=== PATIENT | female | born 1950 | race Caucasian/White ===

== ENCOUNTER 2016-11-26 22:33 | Emergency (ER) | payer MEDICARE, BC | END 2016-11-26 23:47 | disposition home or self-care (01) | LOC: BURERS 22:33 | DX: F41.9 Anxiety disorder, unspecified (principal); F32.9 Major depressive disorder, single episode, unspecified; Z87.891 Personal history of nicotine dependence | CPT/HCPCS: 93005 ==

== ENCOUNTER 2017-08-28 08:49 | Emergency (ER) | payer MEDICARE, BC ==
[2017-08-28] MEDS ORDERED: Diazepam 10 MG/2 ML SYRINGE ONE (09:16)
[2017-08-28 09:37] LABS: pH (venous) 7.38 (7.35-7.45)
[2017-08-28 09:38] LABS: Base Excess -1.2 mEq/L (-2 - +2); Hemoglobin (Hb) 7.7 g/dL (11.7-16.1)
[2017-08-28] MEDS ORDERED: Meclizine HCl 25 MG TAB ONE (10:24)
[2017-08-28 11:10] LABS: ALT (SGPT) 18 U/L (8-55); AST (SGOT) 12 U/L (5-34); Albumin 4.4 g/dL (3.4-4.8); Alkaline Phosphatase 90 U/L (40-150); Anion Gap 13 mmol/L (10-20); BUN (Urea Nitrogen) 12 mg/dL (9.8-20.1); Bilirubin, Total 0.3 mg/dL (0.2-1.2); CK (CPK) 57 U/L (29-168); Calc. Creatinine Clearance 0 mL/min (70-130); Calcium 9.5 mg/dL (7.8-10.44); Carbon Dioxide 24 mmol/L (23-31); Chloride 106 mmol/L (98-107); Estimated GFR-MDRD 76; Globulin 2.6 g/dL (2.4-3.5); Glucose 149 mg/dL (80-115); Lipase 21 U/L (8-78); Potassium 3.4 mmol/L (3.5-5.1); Sodium 140 mmol/L (136-145)
[2017-08-28] MEDS ORDERED: Ibuprofen 200 MG TAB ONE (11:11)
[2017-08-28 12:54] LABS: #Basophils 0.1 thou/uL (0.0-0.2); #Eosinphils 0.1 thou/uL (0.0-0.7); #Lymphocytes 2.3 thou/uL (1.20-3.40); #Monocytes 0.5 thou/uL (0.11-0.59); #Neutrophils 4.8 thou/uL (1.40-6.50); %Basophils 1.5 % (0.0-1.0); %Eosinophils 1.2 % (0.0-10.0); %Lymphocytes 29.2 % (21.0-51.0); %Monocytes 5.9 % (0.0-10.0); %Neutrophils 62.3 % (42.0-75.0); Band 8 % (5-11); Eosinophils 2 % (0-10); Hemoglobin 13.8 g/dL (12.0-16.0); Lymphocytes 31 % (21-51); MDiff Complete? YES; Mean Corpuscular Hemoglobin 31.3 pg (27.0-31.0); Mean Corpuscular Volume 89.2 fl (81.0-99.0); Mean Platelet Volume 10.3 fL (7.4-10.4); Monocytes 5 % (0-10); Neutrophil 54 % (42-75); Platelet Count 343 thou/uL (130-400); RBC Distribution Width 12.5 % (11.5-14.5); White Blood Cell (WBC) Count 7.7 thou/uL (4.8-10.8)
--- NOTE | 2017-08-28 20:51 | RAD ---
PORTABLE CHEST: Date: 08-28-17 FINDINGS: An AP portable film at 0859 shows a normal sized heart and clear lungs. The lungs are mildly hyperexp anded, but there are no lobar infiltrates or effusions. There is no vascular congestion or edema. The trachea is midline and the mediastinum appears normal. IMPRESSION: Mildly hyperexpanded lungs. Exam otherwise unremarkable. POS: HOME
[2017-08-29 09:54] LABS: CKMB 0.9 ng/mL (0-6.6); Troponin I Less than 0.010 ng/mL (< 0.028)
== END 2017-08-28 11:18 | disposition home or self-care (01) ==
LOC: BURERS 08:49
DX: H81.392 Other peripheral vertigo, left ear (principal); F41.9 Anxiety disorder, unspecified; F32.9 Major depressive disorder, single episode, unspecified; F17.210 Nicotine dependence, cigarettes, uncomplicated
CPT/HCPCS: 36415; 71045; 80053; 82550; 82553; 82805; 83690; 84484; 85025; 93005; 96361; 96374; J3360